=== PATIENT | male | born 1990 | race Native Hawaiian/Other Pacific Islander ===

== ENCOUNTER 2017-04-30 09:48 | Emergency (ER) | payer OTHER ==
[~2017-04-30] VITALS: Ht 170.2 cm; Wt 61.2 kg
== END 2017-04-30 10:00 | disposition left against medical advice (07) ==
LOC: ED 09:48
DX: R11.2 Nausea with vomiting, unspecified (principal); R10.9 Unspecified abdominal pain
CPT/HCPCS: 99281